=== PATIENT | male | born 1960 | race Two or more races ===

== ENCOUNTER 2018-07-19 09:33 | Day surgery (SDC) | payer OTHER ==
[~2018-07-19] VITALS: Ht 175.3 cm; Wt 80.3 kg
[2018-07-19] VITALS (10 sets, daily range): BP systolic 103–129; BP diastolic 65–80
[~2018-07-19 09:33] MED LIST: NKM
[2018-07-19] MEDS ORDERED: fentaNYL 100 mcg/2 mL IV ONE (10:38)
[2018-07-19] MEDS ORDERED: Midazolam 2mg/2ml Inj ONE (10:38)
[2018-07-19] MEDS ORDERED: Ketorolac 30mg Inj ONE (10:40)
[2018-07-19] MEDS ORDERED: Propofol 200mg/20ml IV ONE (10:40)
[2018-07-19] MEDS ORDERED: Lidocaine 1% MPF 10mg/ml 5ml ONE (10:40)
--- NOTE | 2018-07-19 10:44 | Pre-Procedure Note/Attestation ---
Pre-Procedure Note/Attestation Complete Prior to Procedure Planned Procedure: right Procedure Narrative: laparoscopic right inguinal hernia repair with mesh possible open; laparoscopic right incisional ventral spigelian hernia repair with mesh possible open Indications for Procedure Pre-Operative Diagnosis: right inguinal hernia; right incisional ventral spigelian hernia Attestation I attest that I discussed the nature of the procedure; its benefits; risks and complications; and alternatives (and the risks and benefits of such alternatives ), prior to the procedure, with the patient (or the patient's legal hotel services sales representative). I attest that, if there was a reasonable possibility of needing a blood transfusion, the patient (or the patient's legal hotel services sales representative) was given the [place] [facility] [employer] [facility] standardized written summary, pursuant to the [place] Blood Safety Act ([place] Health and Safety Code # 1645, as amended). I attest that I re-evaluated the patient just prior to the surgery and that there has been no change in the patient's H&P, except as documented below: Yohan Linn July 19, 2018 10:44
[2018-07-19] MEDS ORDERED: ceFAZolin sod 2 GM in D5W 110 ML IV ONE (10:45)
[2018-07-19] MEDS ORDERED: Succinylcholine 20mg/ml 10ml vial ONE (10:53)
[2018-07-19] MEDS ORDERED: Zemuron 50mg/5ml Inj IV ONE (10:53)
[2018-07-19] MEDS ORDERED: Bupivacaine w/Epi 0.25% 30ml Vial INJ ONE (11:22)
[2018-07-19] MEDS ORDERED: Bacitracin 50000 Units Vial ONE (11:22)
[2018-07-19] MEDS ORDERED: NS Irrig 1000ml ONE (11:30)
[2018-07-19] MEDS ORDERED: LR 1000ml ONE (11:30)
[2018-07-19] MEDS ORDERED: Sterile Water Irrig 1000ml IRRIG ONE (11:30)
[2018-07-19] MEDS ORDERED: LR 1000ml 1,000 ML IVLG SCH (12:25)
--- NOTE | 2018-07-19 12:25 | Anethesia Preoperative Eval ---
Anesthesia Pre-op PMH/ROS General Date of Evaluation: July 19, 2018 Time of Evaluation: 11:22 Anesthesiologist: Ana Laura ASA Score: ASA 2 Mallampati Score Class I : Soft palate, uvula, fauces, pillars visible Class II: Soft palate, uvula, fauces visible Class III: Soft palate, base of uvula visible Class IV: Only hard plate visible Mallampati Classification: Class II Surgeon: Jeanne Diagnosis: R injuinal hernia Surgical Procedure: Laparoscopic R injuinal hernia repair Anesthesia History: none Family History: no anesthesia problems Allergies: Coded Allergies: No Known Allergies (Unverified , 07/19/18) Medications: see eMAR Patient NPO?: Yes Past Medical History Cardiovascular: Reports: HTN - mild; Denies: CAD, MA, valve dz, arrhythmia, other Pulmonary: Denies: asthma, COPD, JOSHUA, other Gastrointestinal/Genitourinary: Reports: GERD - mild; Denies: CRI, ESRD, other Neurologic/Psychiatric: Denies: dementia, CVA, depression/anxiety, TIA, other Endocrine: Denies: DM, hypothyroidism, steroids, other HEENT: Denies: cataract (L), cataract (R), glaucoma, DOUGLAS (L), DOUGLAS (R), other Hematology/Immune: Denies: anemia, DVT, bleeding disorder, other Musculoskeletal/Integumentary: Denies: OA, RA, DJD, DDD, edema, other PMH Narrative: as above PSxH Narrative: Appendectomy, hernia repair Anesthesia Pre-op Phys. Exam Physician Exam Last Vital Signs Date Time Temp Pulse Resp B/P (MAP) Pulse Ox O2 Delivery O2 Flow Rate FiO2 07/19/18 10:04 Room Air 07/19/18 10:03 97.3 71 18 129/80 98 Constitutional: NAD Neurologic: CN 2-12 intact Cardiovascular: RRR, no M/R/G Respiratory: CTA Gastrointestinal: S/NT/ND Airway Exam Mallampati Score: Class II MO: full Neck: flexible ROM: full Teeth: missing Dentures: no upper, no lower Anesthesia Pre-op A/P Labs see chart Studies Pre-op Studies: EKG - SR Risk Assessment & Plan Assessment: ASA 2 Plan: GA with ETT Status Change Before Surgery: Yes Pre-Antibiotics Drug: Ancef 2Gr Given Within 1 Hr of Incision: Yes Time Given: 12:08 Chapin Du MD July 19, 2018 12:25
[2018-07-19] MEDS ORDERED: Glycopyrrolate 0.2mg/ml 1ml Vial ONE (12:28)
[2018-07-19] MEDS ORDERED: Neostigmine 1mg/ml 10ml Inj ONE (12:28)
[2018-07-19] MEDS ORDERED: Ketorolac 30mg Inj IV PRN (12:30)
[2018-07-19] MEDS ORDERED: Meperidine 50mg/ml Inj(FOR RIGORS ONLY) IV PRN (12:30)
[2018-07-19] MEDS ORDERED: DiphenhydrAMINE 50mg/ml Inj IVP PRN (12:30)
--- NOTE | 2018-07-19 14:23 | Brief Operative Note ---
Immediate Post Operative Note Operative Note Pre-op Diagnosis: right inguinal hernia; right incisional ventral spigelian hernia Procedure: 1. laparoscopic right inguinal hernia repair with mesh 2. open ventral incisional spigelian hernia repair with mesh 3. implantation of mesh for ventral hernia repair Post-op Diagnosis: 1. right direct inguinal hernia with small indirect component; reducible 2. incarcerated ventral incisional spigelian hernia with bowel contents. Surgeon: sagar Anesthesiologist: keesha Anesthesia: local Specimen: yes - hernia sac spigelian Complications: none Condition: stable Fluids: see records Estimated Blood Loss: minimal Drains: FELIBERTO Implant(s) used?: Yes - mesh Yohan Linn July 19, 2018 14:23
--- NOTE | 2018-07-19 14:23 | Immediate Post-Op Evaluation ---
Immediate Post-Op Evalulation Immediate Post-Op Evalulation Procedure: Laparoscopic R injunal hernia repair open repair of ventral hernia Date of Evaluation: July 19, 2018 Time of Evaluation: 14:22 IV Fluids: 1000 Blood Products: none Estimated Blood Loss: <50 Urinary Output: none Blood Pressure Systolic: 114 Blood Pressure Diastolic: 72 Pulse Rate: 62 Respiratory Rate: 20 O2 Sat by Pulse Oximetry: 99 Temperature (Fahrenheit): 98.2 Pain Score (1-10): 1 Nausea: No Vomiting: No Complications none Patient Status: reacts, patent, extubated, none Hydration Status: adequate Chapin Du MD July 19, 2018 14:23
[2018-07-19] MEDS ORDERED: HYDROmorphone 1mg/ml Carpuject SUBQ PRN (14:30)
--- NOTE | 2018-07-19 15:29 | 48 Hour Post Anesthesia Eval ---
Post Anesthesia Evaluation Procedure: Laparoscopic R injunal hernia repair open repair of ventral hernia Date of Evaluation: July 19, 2018 Time of Evaluation: 15:28 Blood Pressure Systolic: 111 0: 74 Pulse Rate: 64 Respiratory Rate: 20 Temperature (Fahrenheit): 97.8 O2 Sat by Pulse Oximetry: 98 Airway: patent Nausea: No Vomiting: No Pain Intensity: 2 Hydration Status: adequate Cardiopulmonary Status: stable Mental Status/LOC: patient returned to baseline Follow-up Care/Observations: n/a Post-Anesthesia Complications: none Follow-up care needed: ready to discharge Chapin Du MD July 19, 2018 15:29
[2018-07-19] MEDS ORDERED: D5 1/2NS 1,000 ML IV SCH (16:17)
[2018-07-19] MEDS ORDERED: Tylenol #3 tab (300mg/30mg) ORAL PRN (16:18)
[2018-07-19] MEDS ORDERED: HYDROcodone/Acetamin 5/325 tab ORAL PRN (16:18)
--- NOTE | 2018-07-19 23:45 | Operative Note - Dictated ---
DATE OF OPERATION: 07/19/2018 PREOPERATIVE DIAGNOSES: 1. Right inguinal hernia. 2. Right incisional ventral spigelian hernia. POSTOPERATIVE DIAGNOSES: 1. Reducible right direct inguinal hernia with small indirect components. 2. Incarcerated ventral incisional spigelian hernia with bowel contents. OPERATION PERFORMED: 1. Laparoscopic right inguinal hernia repair with mesh. 2. Open repair of incarcerated ventral incisional spigelian hernia with mesh. 3. Implantation of mesh for ventral hernia repair. 4. Right rectus musculocutaneous flap. 5. Localized adjacent tissue transfer with the use of skin flaps to close the defect. 6. Drain placement. ATTENDING SURGEON: Yohan Linn M.D. SEAFOOD SERVICE TEAM MEMBER: None. ANESTHESIOLOGIST: Chapin Du M.D. ANESTHESIA: General EXTRACTOR OPERATOR SOLVENT PROCESS. ESTIMATED BLOOD LOSS: Minimal. IV FLUIDS: Please see anesthesia records. COMPLICATIONS: None. DRAINS: None. SPECIMENS: Hernia spigelian sac. IMPLANTS: 1. Bard large 3D mesh right-sided inguinal hernia mesh, reference #[id number], account lot number [id number], date of expiration 11/07/2022. 2. Bard Ventralex hernia patch, large circular 8 cm, lot number [id number], date of expiration 08/07/2020, reference #[id number]. INDICATIONS FOR PROCEDURE: This is a 58-year-old male, who is referred to Dr. Linn for evaluation of hernia, which has been progressively worsening and becoming more symptomatic and interfering the patient's work. The patient was initially seen in the office and evaluated and identified to have a reducible right inguinal hernia and on examination, also had a ventral incisional hernia from his prior right lower quadrant appendectomy incision. There was significant bowel contents within the hernia sac and the hernia was identified to be complex and therefore, CT scan was obtained, which identified a large near 10 cm spigelian ventral hernia incisional from prior surgery. Given these findings, surgery was indicated and recommended. Consent was obtained from the patient after discussing the risks, benefits, and alternatives including mesh placement and laparoscopic open surgery in detail with the patient and his family. Verification was obtained from the insurance company for surgical repair given these findings. Verification and authorization was obtained from the insurance company given the above diagnosis and planned surgical interventions. OPERATIVE NOTE: The patient was taken to the operating room and placed on the operating table in supine position with left arm tucked. All bony prominences were well padded. SCDs were placed. Preoperative time-out taken identifying the patient, procedure, operative staff, and surgical staff. The patient voided just prior to entering the l operating room, so no Alvarado catheter was inserted. General anesthesia was induced and the patient was intubated. The abdomen was clipped, prepped, and draped in surgical fashion including the groins. An infraumbilical incision was made after local anesthetic was infiltrated. Incision was carried down to the fascia, which was elevated and incised. Entry into the abdomen was obtained using the open Reji technique. A 12 mm Reji trocar was inserted and the abdomen was insufflated to 12 to 15 mmHg. Laparoscope was inserted and the abdomen was inspected. In the right upper quadrant, liver looked otherwise healthy without complication. In the left upper quadrant, liver and stomach looked otherwise healthy without complication. In the left lower quadrant, there was no hernia defect or abnormality noted. The pelvis was otherwise normal. In the right abdomen and lower quadrant, there was identified initially to be a large incarcerated spigelian ventral hernia noted with bowel contents within the hernia sac. In the groin, there was a moderate-sized direct inguinal hernia with a small indirect component to it as well. There was no bowel contents within the inguinal hernia. At this time, decision was made to proceed laparoscopically and secondary trocars were placed under direct visualization beginning with a 5 mm left mid abdominal trocar followed by 5 mm right mid abdominal trocar. No injury from secondary trocar placement noted. Laparoscopic graspers were used and with blunt dissection as well as sharp dissection using scissors, the hernia contents from the incarcerated spigelian hernia were dissected out and reduced. Once this was completed, the area of the abdominal wall was identified and it was noted that the spigelian ventral hernia was very complex with approximately 5 to 6 cm defect opening, but then a much larger nearly 10 to 12 cm hernia sac extending laterally as well as a another hernia sac extending towards the subcutaneous tissue and dermis leaving a very large area of defect with near 2 separate sacs. Following this, decision made to initially proceed with a laparoscopic right inguinal hernia repair. Laparoscopic graspers and Metzenbaum scissors were used and an incision was made in the peritoneum. The peritoneal lining was dissected down until a peritoneal flap could be created reducing the indirect and direct hernia sac contents. Once this was completed, an appropriate dissection was identified laterally and medially. In the medial aspect, the pubic tubercle and Erick's ligament were identified. Just lateral to this was the direct hernia sac, which was reduced and no contents identified. Lateral to this was the indirect small hernia, which was reduced as well as the spermatic cord and structures which were identified and protected throughout the procedure. Laterally, a good peritoneal flap had been made. At this time, a Bard 3D mesh large right-sided mesh was brought into the operative field and placed into the abdomen. The mesh was positioned appropriately covering both the indirect and direct hernia sites well for satisfactory repair. An AbsorbaTack absorbable tacking device was then used and the mesh was tacked to Erick's ligament inferiorly and 1 tack was placed superiorly at the level of the rectus just medial to the epigastric muscle, which was clearly identified. The mesh was in good positioning and at this time, the peritoneal flap was placed over the mesh and peritoneal flap reapproximated with the absorbable tacks. Satisfactory right inguinal hernia repair was identified without complication. At this time, we turned our attention to the ventral spigelian hernia and using laparoscopic graspers, attempted to reduce the hernia sac. Hernia sac was densely adhesed in all directions circumferentially in both the larger lateral sac and a smaller anterior sac. At this time, decision was made that it would not be possible to appropriately repair the sac given its size, complexity, and location and therefore, decision was made to repair this hernia open. The abdomen was desufflated. The hernia was marked out and the palpable defect was identified. Utilizing the patient's prior incision, a right lower quadrant incision was made using a fresh #10 scalpel and carried down to subcutaneous tissue to the hernia sac, which was identified. The hernia sac was opened and this was identified to be the anterior hernia sac, which then as we went deeper led to a much larger lateral hernia sac as well as identifying the ventral defect. The anterior hernia sac was dissected out circumferentially and divided and ligated with electrocautery. Following this, the lateral hernia sac was circumferentially dissected out with electrocautery and divided and sent to pathology as specimen. At this time, what could be identified is a large defect in the lateral aspect between the rectus sheath and the subcutaneous tissue as well as a defect into the abdomen that was approximately 5 cm x 4 cm in length. At this time, attempt was made to primarily close the defect, but there was significant amount of tension given the in this area and given this tension primary repair was not possible. Bridged repair with mesh given its location would likely have a high recurrence risk and therefore, decision was made to mobilize a portion of the right rectus fascia and muscle as a muscular cutaneous flap. An incision was made in the anterior rectus sheath and the rectus muscle was identified. The incision was allowed for relaxation of the rectus muscle medially and inferiorly. As the release was taken superiorly and inferiorly, the rectus muscle was easily mobilized along with the posterior fascia and allowed for appropriate closure as well as allowing the rectus muscle to overlie the defect. The defect edges were gently debrided to healthy viable tissue and after release and allowing for the anterior rectus sheath and the rectus muscle to overlie the defect, appropriate closure could be obtained with mesh. A Bard 8 centimeter cm circular mesh with strap was then placed into the polypropylene self expanding mesh for soft tissue reconstruction that was placed into the abdomen below the defect and sutured to the posterior rectus sheath and peritoneal lining using #0 Prolene sutures. Once this was circumferentially placed and mesh repair was noted to be appropriate, the rectus muscle and sheath which were prior dissected free for flap repair were placed over the mesh and the anterior rectus sheath superiorly inferiorly were reapproximated using #0 Prolene sutures. There was a large subcutaneous defect remaining given the prior large sac that was identified and therefore the right mid abdominal 5 mm trocar site was removed and a drain was placed through the skin incision tunneling into the hernia sac. A 10-Green[place] Maikel-Cunningham drain was placed. The drain was sutured to the skin using a 3-0 nylon suture. Following this, the skin incision was closed in a two-layer fashion beginning with 3-0 Vicryl dermal reapproximation sutures followed by 4-0 Monocryl subcuticular running suture. The drain placed to suction and repair was noted to be satisfactory and adequate without tension and with mesh appropriately. The abdomen was reinsufflated and the laparoscope was inserted and both ventral and inguinal hernia were identified satisfactory without complication. There was no bleeding. Both meshes were in place and in satisfactory positioning. No defects were remaining. At this time, the secondary trocar from the left abdomen was removed under direct visualization followed by desufflation of the abdomen and removal of the umbilical trocar site. The umbilical trocar site fascia was reapproximated using #0 [id number] Vicryl suture. The skin incisions were cleansed and reapproximated using 4-0 Monocryl subcuticular interrupted sutures. Local anesthetic was utilized throughout the procedure for the patient's comfort. Dermabond and skin glue were applied followed by dressings for the drain. At the end of the procedure, both testicles were identified to be into the scrotal sac without any complications. The patient tolerated the procedure well, was extubated, and taken to postanesthetic care unit in stable condition and discharged home in stable condition with full instructions as well as follow-up. Yohan Linn M.D. DR: BENITA JOB#: [id number] CC: [email or web address]
== END 2018-07-19 15:50 | disposition home or self-care (01) ==
LOC: SUR 09:33
DX: K40.90 Unilateral inguinal hernia, without obstruction or gangrene, not specified as recurrent (principal); K43.0 Incisional hernia with obstruction, without gangrene; I10 Essential (primary) hypertension; K21.9 Gastro-esophageal reflux disease without esophagitis; Z90.89 Acquired absence of other organs
CPT/HCPCS: 14000; 49650; 49655; C1781; J0330; J0690; J1885; J2250; J2704; J2710; J3010; 94003; 94150